=== PATIENT | male | born 1945 | race Caucasian/White ===

== ENCOUNTER 2018-12-16 18:31 | Emergency (ER) | payer OTHER ==
[~2018-12-16] VITALS: Ht 182.9 cm; Wt 73.8 kg
[2018-12-16 18:34] VITALS: Ht 182.9 cm; Wt 73.8 kg
[2018-12-16] MEDS ORDERED: METO10TA92 PO (19:52)
[2018-12-16] MEDS ORDERED: METOCLOPRAMIDE 10 MG INJ IM ONE (20:00)
--- NOTE | 2018-12-16 21:08 | ERD ---
ER Documentation Chief Complaint Chief Complaint HICCUPS X'S 5 DAYS HPI 73-year-old male with no reported past medical history, no past surgical history who presents with complaint of intractable hiccups over the past 5 days. He otherwise denies chest pain, shortness of breath, dyspnea, history of cardiac disease, nausea, vomiting, diarrhea, abdominal pain, urinary symptoms. Has been eating his normal meals states he does not drink too many carbonated drinks. Has a PMD which he follows up with. He otherwise without symptoms, has been drinking and eating without issue. ROS All systems reviewed and are negative except as per history of present illness. Medications Home Meds Active Scripts Metoclopramide* (Reglan*) 10 Mg Tablet, 10 MG PO Q6 PRN for NAUSEA AND/OR VOMITING, #20 TAB Prov:TRUDI LYNN PA-C 12/16/18 Allergies Allergies: Coded Allergies: Sulfa (Sulfonamide Antibiotics) (Verified Allergy, Unknown, 12/16/18) PMhx/Soc Medical and Surgical Hx: pt denies Medical Hx, pt denies Surgical Hx Hx Alcohol Use: No Hx Substance Use: No Hx Tobacco Use: No Smoking Status: Never smoker FmHx Family History: No diabetes, No coronary disease, No other Physical Exam Vitals Vital Signs Date Temp Pulse Resp B/P (MAP) Pulse Ox O2 O2 Flow FiO2 Time Delivery Rate 12/16/18 99.2 120 18 133/78 95 18:34 (96) Physical Exam I have reviewed the triage vital signs. Const: Well nourished, well developed, appears stated age Eyes: PERRL, no conjunctival injection HENT: NCAT, Neck supple without meningismus CV: RRR, Warm, well-perfused extremities RESP: CTAB, Unlabored respiratory effort GI: soft, non-tender, non-distended, no masses MSK: No gross deformities appreciated Skin: Warm, dry. No rashes Neuro: grossly non focal Psych: Appropriate mood and affect. Results 24 hrs Current Medications Medications Dose Sig/Shantal Start Time Status Last (Trade) Ordered Route PRN Stop Time Admin Dose Reason Admin 10 mg ONCE ONCE 12/16/18 DC 12/16/18 Metoclopramid IM 20:00 12/16/18 19:58 e HCl 20:01 (Reglan) Procedures/MDM 73-year-old male with no past medical history who presents with intractable hiccups. I have low suspicion for acute process causing her symptoms such as CVA, underlying infection, structural abnormality, brainstem injury or neoplasm, laryngitis or pharyngitis, intra-abdominal process, intrapulmonary process, toxic metabolic process. ED course: Chest x-ray without acute finding EKG with right bundle branch block with no other acute findings, previous EKG for comparison, read by pending. Instructed patient to have repeat EKG at some point with his PMD. Symptoms improved somewhat per patient with Reglan We will discharge with course of Reglan p.o., advised patient to follow-up with PMD, strict return precautions explained in detail DISPOSITION PLAN: We discussed follow up with the patient's primary care doctor within 24 to 48 hours. Patient counseled regarding my diagnostic impression and care plan. Prior to discharge all questions answered. Pt agrees with treatment plan and understands strict return precautions. Precautionary instructions provided including instructions to return to the ER if not improving or for any worsening or changing symptoms or concerns. Disclaimer: Inadvertent spelling and grammatical errors are likely due to EHR/dictation software use and do not reflect on the overall quality of patient care. Also, please note that the electronic time recorded on this note does not necessarily reflect the actual time of the patient encounter. Departure Diagnosis: Primary Impression: Intractable hiccups Condition: Stable Patient Instructions: Hiccups Referrals: [facility] YOU HAVE RECEIVED A MEDICAL SCREENING EXAM AND THE RESULTS INDICATE THAT YOU DO NOT HAVE A CONDITION THAT REQUIRES URGENT TREATMENT IN THE EMERGENCY DEPARTMENT. FURTHER EVALUATION AND TREATMENT OF YOUR CONDITION CAN WAIT UNTIL YOU ARE SEEN IN YOUR DOCTORS OFFICE WITHIN THE NEXT 1-2 DAYS. IT IS YOUR RESPONSIBILITY TO MAKE AN APPOINTMENT FOR FOLOW-UP CARE. IF YOU HAVE A PRIMARY DOCTOR --you should call your primary doctor and schedule an appointment IF YOU DO NOT HAVE A PRIMARY DOCTOR YOU CAN CALL OUR PHYSICIAN REFERRAL HOTLINE AT IF YOU CAN NOT AFFORD TO SEE A PHYSICIAN YOU CAN CHOSE FROM THE FOLLOWING [facility] [address] [facility] [address] [facility] [place] [address] [facility] [address] [facility] [address] [facility]. [facility] [address] Additional Instructions: Call your primary care doctor TOMORROW for an appointment during the next 2-3 days.See the doctor sooner or return here if your condition worsens before your appointment time. TRUDI LYNN PA-C Dec 16, 2018 21:08
[2018-12-16 21:20] VITALS: BP 155/80; PULSE 104; RESP 20
== END 2018-12-16 21:15 | disposition home or self-care (01) ==
LOC: FTE 18:31
DX: R06.6 Hiccough (principal)
CPT/HCPCS: 71046; 93005; 96372; 99284; J2765

== ENCOUNTER 2018-12-17 23:56 | Emergency (ER) | payer OTHER ==
[~2018-12-17] VITALS: Ht 182.9 cm; Wt 71.6 kg
[~2018-12-17 23:56] MED LIST: METO10TA92 PO
[2018-12-17 23:59] VITALS: Ht 182.9 cm; Wt 71.6 kg
[2018-12-18] MEDS ORDERED: THO25 PO (01:27)
--- NOTE | 2018-12-18 01:29 | ERD ---
ER Documentation Chief Complaint Chief Complaint hiccups makes him sleepless; was here yesterday x same thing HPI 73-year-old male is here for hiccups that he is had for 5 days. He is been having difficulty sleeping because of this. He has had this episode happened once before about 3 years ago and states he was given pills. He was seen here yesterday and given Reglan which did not help. He has no chest pain palpitations or shortness of breath. ROS All systems reviewed and are negative except as per history of present illness. Medications Home Meds Active Scripts Chlorpromazine Hcl* (Thorazine*) 25 Mg Tab, 25 MG PO TID for 3 Days, TAB Prov:ARUTRO PAEZ PA-C 12/18/18 Metoclopramide* (Reglan*) 10 Mg Tablet, 10 MG PO Q6 PRN for NAUSEA AND/OR VOMITING, #20 TAB Prov:TRUDI LYNN PA-C 12/16/18 Allergies Allergies: Coded Allergies: Sulfa (Sulfonamide Antibiotics) (Verified Allergy, Unknown, 12/16/18) PMhx/Soc Medical and Surgical Hx: pt denies Medical Hx, pt denies Surgical Hx Hx Alcohol Use: No Hx Substance Use: No Hx Tobacco Use: No Smoking Status: Never smoker FmHx Family History: No diabetes Physical Exam Vitals Vital Signs Date Temp Pulse Resp B/P (MAP) Pulse Ox O2 O2 Flow FiO2 Time Delivery Rate 12/17/18 100.3 119 20 158/88 96 23:59 (111) Physical Exam INITIAL VITAL SIGNS: Reviewed by me GENERAL: Awake, alert and oriented x 4, well appearing, nontoxic, speaking in full sentences. No acute distress HEAD: Atraumatic NECK: Supple. No masses. Full range of motion. No meningismus. No midline tenderness. RESPIRATORY: Clear to auscultation bilaterally. Symmetric chest wall rise. No wheezing or rales. No accessory muscle use. CV: Regular rate and rhythm. No murmurs, rubs, or gallops. ABDOMEN: Soft, non-distended. Nontender. Negative North. Negative McBurneys point tenderness. No CVA tenderness bilaterally. No guarding. No rebound. Results 24 hrs Current Medications Medications Dose Sig/Shantal Start Time Status Last (Trade) Ordered Route PRN Stop Time Admin Dose Reason Admin 50 mg ONCE ONCE 12/18/18 Chlorpromazin IM 01:30 e 12/18/18 01:31 (Thorazine) Procedures/MDM Patient has hiccups. This is been going on for 5 days. Low-grade temp of 100 .3. Heart rate 119. Reviewed case with who recommended EKG which was performed. No evidence of ST elevation or acute ischemic changes. Rate of 98. Patient given Thorazine here and prescription for Thorazine. Patient counseled regarding my diagnostic impression and care plan. Prior to discharge all questions answered. Pt agrees with treatment plan and understands strict return precautions. Pt is instructed to follow up with primary care provider within 24-48 hours. Precautionary instructions provided including instructions to return to the ER if not improving or for any worsening or changing symptoms or concerns. Departure Diagnosis: Primary Impression: Hiccoughs Condition: Stable Patient Instructions: Hiccups Additional Instructions: Call your primary care doctor TOMORROW for an appointment during the next 1-2 days.See the doctor sooner or return here if your condition worsens before your appointment time. ARTURO PAEZ PA-C Dec 18, 2018 01:29
[2018-12-18] MEDS ORDERED: CHLORPROMAZINE 25 MG INJ IM ONE (01:30)
[2018-12-18 01:59] VITALS: BP 148/93; PULSE 89; RESP 20
== END 2018-12-18 02:00 | disposition home or self-care (01) ==
LOC: FTE 23:56
DX: R06.6 Hiccough (principal)
CPT/HCPCS: 93005; 96372; 99284; J3230